=== PATIENT | male | born 2000 | race Caucasian/White ===

== ENCOUNTER 2024-12-08 20:07 | Emergency (ER) | payer MEDICAID ==
[~2024-12-08] VITALS: Ht 177.8 cm; Wt 95.5 kg
[2024-12-08 20:25] VITALS: BP 134/77; PULSE 62; RESP 16; TEMP 98.1; O2SAT 98
[2024-12-09] MEDS ORDERED: IBUP-1554 PO (01:24)
== END 2024-12-09 01:36 | disposition home or self-care (01) ==
LOC: EMS 20:07
DX: S40.012A Contusion of left shoulder, initial encounter (principal); Z72.89 Other problems related to lifestyle; V23.49XA Other motorcycle driver injured in collision with car, pick-up truck or van in traffic accident, initial encounter; Y93.89 Activity, other specified; Y92.89 Other specified places as the place of occurrence of the external cause; Y99.8 Other external cause status
CPT/HCPCS: 99283